=== PATIENT | female | born 1985 | race Caucasian/White ===

== ENCOUNTER 2021-06-25 14:09 | Inpatient (IN) | payer OTHER ==
[~2021-06-25] VITALS: Ht 172.7 cm; Wt 63.6 kg
[~2021-06-25 14:09] MED LIST: NORCO 5-325 TA1 EACH PO
[2021-06-25 15:11] LABS: HEMOGLOBIN 14.2 gm/dl (12.3-15.3); RED BLOOD COUNT 4.25 M/UL (4.00-5.10); WHITE BLOOD COUNT 15.4 K/UL (4.5-11.0)
[2021-06-25 15:52] LABS: BUN/CREATININE RATIO 9 (0-10)
[2021-06-26 04:35] LABS: HEMOGLOBIN 12.2 gm/dl (12.3-15.3); RED BLOOD COUNT 3.7 M/UL (4.00-5.10); WHITE BLOOD COUNT 11.1 K/UL (4.5-11.0)
[2021-06-26 04:51] LABS: BUN/CREATININE RATIO 6 (0-10)
[2021-06-27 05:18] LABS: HEMOGLOBIN 11.7 gm/dl (12.3-15.3); RED BLOOD COUNT 3.55 M/UL (4.00-5.10); WHITE BLOOD COUNT 10.3 K/UL (4.5-11.0)
[2021-06-27 05:45] LABS: BUN/CREATININE RATIO 6 (0-10)
[2021-06-27 08:14] LABS: HBSAG SCREEN Negative (Negative); HEP A AB, IGM Negative (Negative); HEP B CORE AB, IGM Negative (Negative); HEP C VIRUS AB 0.1 (0.0-0.9)
[2021-06-28 04:23] LABS: HEMOGLOBIN 11.8 gm/dl (12.3-15.3); RED BLOOD COUNT 3.59 M/UL (4.00-5.10)
[2021-06-28 04:30] LABS: WHITE BLOOD COUNT 7.7 K/UL (4.5-11.0)
[2021-06-28 04:51] LABS: BUN/CREATININE RATIO 5 (0-10)
[2021-06-29 02:43] LABS: HEMOGLOBIN 13.6 gm/dl (12.3-15.3)
[2021-06-29 02:48] LABS: RED BLOOD COUNT 4.13 M/UL (4.00-5.10); WHITE BLOOD COUNT 12.1 K/UL (4.5-11.0)
[2021-06-29 03:14] LABS: BUN/CREATININE RATIO 9 (0-10)
[2021-06-30 06:43] LABS: HEMOGLOBIN 12.6 gm/dl (12.3-15.3); RED BLOOD COUNT 3.79 M/UL (4.00-5.10); WHITE BLOOD COUNT 9.2 K/UL (4.5-11.0)
[2021-06-30 07:07] LABS: BUN/CREATININE RATIO 8 (0-10)
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
[2021-07-01 03:20] LABS: HEMOGLOBIN 13.5 gm/dl (12.3-15.3); RED BLOOD COUNT 4.06 M/UL (4.00-5.10)
[2021-07-01 03:21] LABS: WHITE BLOOD COUNT 14.2 K/UL (4.5-11.0)
[2021-07-01 03:37] LABS: BUN/CREATININE RATIO 7 (0-10)
[2021-07-02 06:23] LABS: RED BLOOD COUNT 4.24 M/UL (4.00-5.10)
[2021-07-02 06:28] LABS: WHITE BLOOD COUNT 8.3 K/UL (4.5-11.0)
[2021-07-02 06:39] LABS: BUN/CREATININE RATIO 5 (0-10)
--- NOTE | 2021-07-02 16:13 | NUR ---
PT DRESSING CHANGE COMPLETED AT THIS TIME PER PROVIDERS ORDERS MINIMAL DRAINAGE NOTED. EDGES OF WOUND ARE WELL PROXIMATED.
[2021-07-03 04:23] LABS: WHITE BLOOD COUNT 7.7 K/UL (4.5-11.0)
[2021-07-03 04:25] LABS: RED BLOOD COUNT 3.59 M/UL (4.00-5.10)
[2021-07-03 05:01] LABS: BUN/CREATININE RATIO 5 (0-10)
[2021-07-03] MEDS ORDERED: HYDROCODON-ACE1 EAC2 PO (11:17)
[2021-07-03] MEDS ORDERED: ZYVOX600 MG PO (11:29)
[2021-07-03] MEDS ORDERED: LEVOFLOXACIN750 MG PO (11:39)
[2021-07-03] MEDS ORDERED: K-TAB ER10 MEQ PO (11:39)
--- NOTE | 2021-07-03 14:58 | NUR ---
CALLED [facility] TO GIVE REORT ON PT, NURSE WOULD NOT ACCEPT REPORT AT THIS TIME STATED THAT SHE HAS TO BESSEN BY HER PCP AND ORDERS HAVE TO BE SIGNED BY HIM BEFORE THEY WILL PICK HER UP A PT.
--- NOTE | 2021-07-03 16:57 | NUR ---
dressing change cmlete per providers order
== END 2021-07-03 16:57 | disposition home health service (06) | DRG 593 ==
LOC: ER1 14:09 → CDU 16:45 → M/S 16:45
PROVIDERS: Internal Medicine; Nurse Practitioner; Physician Assistant; ADMIT Internal Medicine
DX: L97.829 Non-pressure chronic ulcer of other part of left lower leg with unspecified severity (principal); E87.0 Hyperosmolality and hypernatremia; L03.116 Cellulitis of left lower limb; Z20.822 Contact with and (suspected) exposure to COVID-19; E87.6 Hypokalemia; R94.5 Abnormal results of liver function studies; F17.210 Nicotine dependence, cigarettes, uncomplicated; S70.12XA Contusion of left thigh, initial encounter; B95.62 Methicillin resistant Staphylococcus aureus infection as the cause of diseases classified elsewhere; R74.01 Elevation of levels of liver transaminase levels; B96.89 Other specified bacterial agents as the cause of diseases classified elsewhere; R00.0 Tachycardia, unspecified; Z98.890 Other specified postprocedural states; Z82.49 Family history of ischemic heart disease and other diseases of the circulatory system; Z86.16 Personal history of COVID-19; Z79.899 Other long term (current) drug therapy
CPT/HCPCS: 36415; 70450; 73590; 73718; 80048; 80053; 80074; 80202; 83605; 83735; 84132; 84702; 84703; 85025; 85027; 85652; 86140; 87040; 87070; 87077; 87186; 87205; 96374; 99285; J0692; J1650; J2270; J2405; J3370; J7030; J7070; U0002